=== PATIENT | female | born 1940 | race Caucasian/White ===

== ENCOUNTER 2020-04-30 09:22 | Outpatient (CLI) | payer MEDICARE, SELFPAY ==
[2020-04-30 10:13] LABS: Add Urine Microscopic? YES; Appearance Urine Clear (Clear); Bacteria Urine Trace /hpf; Bilirubin Urine Negative (Negative); Blood Urine Negative (Negative); Color Urine Yellow (Yellow); Glucose Urine UA Negative (Negative); Ketones Urine Negative (Negative); Leukocyte Esterase Ur 2+ LEU/UL (NEGATIVE); Mucus Urine Rare /lpf; Nitrate Urine Negative (Negative); Protein Urine Negative (Negative); RBC Urine 0-2 /hpf (0-2); Specific Grav Ur 1.014 (1.001-1.035); Squamous Epithelial Cell Urine Rare /hpf (Few); Urobilinogen Urine Negative mg/dL (<2.0); WBC Urine 16-20 /hpf (0-3)
[2020-04-30 10:25] LABS: Alanine Aminotransferase 19 U/L (4-35); Albumin Level 4.3 g/dL (3.5-5.1); Alkaline Phosphatase 84 U/L (38-126); Aspartate Amino Transferase 27 U/L (14-36); Bilirubin,Total 0.5 mg/dL (0.2-1.3); Blood Urea Nitrogen 20 mg/dL (7-17); Calcium 9.2 mg/dL (8.4-10.2); Carbon Dioxide 27 mmol/L (22-30); Chloride 96 mmol/L (98-107); Cholesterol 251 mg/dL (0-200); Estimated Glomerular Filt Rate > 60; Glucose 96 mg/dL (65-105); HDL Direct 46 mg/dL; Potassium 4.6 mmol/L (3.4-5.0); Sodium 130 mmol/L (137-145); Triglycerides 263 mg/dL (<150)
[2020-04-30 10:37] LABS: LDL Cholesterol Direct 164 mg/dL
[2020-04-30 11:20] LABS: Vitamin D 25 Hydroxy 93.1 ng/mL
== END 2020-04-30 09:23 | disposition home or self-care (01) ==
LOC: ANHLAB 09:26
PROVIDERS: PCP Physician Assistant; Visit Provider Physician Assistant
DX: E55.9 Vitamin D deficiency, unspecified (principal); F41.1 Generalized anxiety disorder; F51.04 Psychophysiologic insomnia; I10 Essential (primary) hypertension
CPT/HCPCS: 36415; 80053; 80061; 81001; 82306; 84443

== ENCOUNTER 2020-05-13 08:50 | Outpatient (CLI) | payer MEDICARE, SELFPAY ==
[2020-05-13 09:25] LABS: Blood Urea Nitrogen 14 mg/dL (7-17); Calcium 9.2 mg/dL (8.4-10.2); Carbon Dioxide 26 mmol/L (22-30); Chloride 93 mmol/L (98-107); Estimated Glomerular Filt Rate > 60; Glucose 102 mg/dL (65-105); Sodium 127 mmol/L (137-145)
== END 2020-05-13 08:51 | disposition home or self-care (01) ==
LOC: ANHLAB 08:52
PROVIDERS: PCP Physician Assistant; Visit Provider Physician Assistant
DX: I10 Essential (primary) hypertension (principal)
CPT/HCPCS: 36415; 80048

== ENCOUNTER 2020-05-19 08:41 | Outpatient (CLI) | payer MEDICARE, SELFPAY ==
[2020-05-19 09:11] LABS: Blood Urea Nitrogen 19 mg/dL (7-17); Calcium 9.1 mg/dL (8.4-10.2); Carbon Dioxide 25 mmol/L (22-30); Chloride 98 mmol/L (98-107); Estimated Glomerular Filt Rate 53; Glucose 94 mg/dL (65-105); Potassium 5.3 mmol/L (3.4-5.0); Sodium 132 mmol/L (137-145)
== END 2020-05-19 08:42 | disposition home or self-care (01) ==
LOC: ANHLAB 08:43
PROVIDERS: PCP Family Medicine; Visit Provider Physician Assistant
DX: E87.1 Hypo-osmolality and hyponatremia (principal)
CPT/HCPCS: 36415; 80048

== ENCOUNTER 2020-05-26 09:57 | Outpatient (CLI) | payer MEDICARE, SELFPAY ==
[2020-05-26 11:14] LABS: Blood Urea Nitrogen 19 mg/dL (7-17); Carbon Dioxide 25 mmol/L (22-30); Chloride 97 mmol/L (98-107); Estimated Glomerular Filt Rate > 60; Glucose 96 mg/dL (65-105); Potassium 4.8 mmol/L (3.4-5.0); Sodium 132 mmol/L (137-145)
== END 2020-05-26 09:58 | disposition home or self-care (01) ==
PROVIDERS: PCP Family Medicine; Visit Provider Physician Assistant
DX: I10 Essential (primary) hypertension (principal)
CPT/HCPCS: 36415; 80048

== ENCOUNTER 2020-06-17 08:36 | Outpatient (CLI) | payer MEDICARE, SELFPAY ==
[2020-06-17 09:38] LABS: Anion Gap 13.5 mmol/L (7-16); Blood Urea Nitrogen 20 mg/dL (7-17); Calcium 9.1 mg/dL (8.4-10.2); Carbon Dioxide 27 mmol/L (22-30); Chloride 95 mmol/L (98-107); Estimated Glomerular Filt Rate > 60; Glucose 96 mg/dL (65-105); Potassium 4.5 mmol/L (3.4-5.0); Sodium 131 mmol/L (137-145)
== END 2020-06-17 08:37 | disposition home or self-care (01) ==
PROVIDERS: PCP Family Medicine; Visit Provider Physician Assistant
DX: E87.1 Hypo-osmolality and hyponatremia (principal); I10 Essential (primary) hypertension
CPT/HCPCS: 36415; 80048

== ENCOUNTER 2020-07-10 10:00 | Outpatient (CLI) | payer MEDICARE, SELFPAY ==
[2020-07-10 11:00] LABS: Anion Gap 8 mmol/L (8-16); Blood Urea Nitrogen 18 mg/dL (7-17); Calcium 9.5 mg/dL (8.4-10.2); Carbon Dioxide 27 mmol/L (22-30); Chloride 98 mmol/L (98-107); Estimated Glomerular Filt Rate 53; Glucose 104 mg/dL (65-105); Potassium 4.9 mmol/L (3.4-5.0); Sodium 133 mmol/L (137-145)
== END 2020-07-10 10:01 | disposition home or self-care (01) ==
PROVIDERS: PCP Family Medicine; Visit Provider Physician Assistant
DX: E87.1 Hypo-osmolality and hyponatremia (principal)
CPT/HCPCS: 36415; 80048

== ENCOUNTER 2021-03-24 12:00 | Outpatient (CLI) | payer MEDICARE, SELFPAY ==
[2021-03-24 12:33] LABS: Alanine Aminotransferase 21 U/L (4-35); Albumin Level 4.7 g/dL (3.5-5.1); Alkaline Phosphatase 97 U/L (38-126); Anion Gap 9 mmol/L (8-16); Aspartate Amino Transferase 30 U/L (14-36); Bilirubin,Total 0.3 mg/dL (0.2-1.3); Blood Urea Nitrogen 15 mg/dL (7-17); Calcium 9.9 mg/dL (8.4-10.2); Carbon Dioxide 26 mmol/L (22-30); Chloride 99 mmol/L (98-107); Estimated Glomerular Filt Rate 60; Glucose 105 mg/dL (65-105); Hematocrit 44.2 % (37.0-47.0); Mean Corpuscular HGB Conc 33.9 g/dl (32-36); Mean Corpuscular Hemoglobin 30.4 pg (26-34); Mean Corpuscular Volume 89.7 fl (80-100); Mean Platelet Volume 9.6 fl (7.4-10.4); Platelet Count Result 316 k/mm3 (150-375); Potassium 4.8 mmol/L (3.4-5.0); Red Blood Count 4.93 M/mm3 (4.2-5.4); Sodium 134 mmol/L (137-145); White Blood Count 5.9 K/mm3 (4.5-10.0)
[2021-03-24 12:36] LABS: Add Urine Microscopic? NO; Appearance Urine Clear (Clear); Bilirubin Urine Negative (Negative); Blood Urine Negative (Negative); Color Urine Yellow (Yellow); Glucose Urine UA Negative (Negative); Ketones Urine Negative (Negative); Leukocyte Esterase Ur Negative LEU/UL (NEGATIVE); Nitrate Urine Negative (Negative); Protein Urine Negative (Negative); Specific Grav Ur 1.016 (1.001-1.035); Urobilinogen Urine Negative mg/dL (<2.0)
== END 2021-03-24 12:01 | disposition home or self-care (01) ==
PROVIDERS: PCP Family Medicine; Visit Provider Family Medicine
DX: R53.83 Other fatigue (principal); E87.1 Hypo-osmolality and hyponatremia; I10 Essential (primary) hypertension
CPT/HCPCS: 36415; 80053; 81003; 84443; 85027

== ENCOUNTER 2021-09-07 16:01 | Outpatient (CLI) | payer MEDICARE, SELFPAY ==
[2021-09-07 16:34] LABS: Alanine Aminotransferase 20 U/L (4-35); Albumin Level 5.3 g/dL (3.5-5.1); Alkaline Phosphatase 101 U/L (38-126); Anion Gap 12 mmol/L (8-16); Aspartate Amino Transferase 25 U/L (14-36); Bilirubin,Total 0.4 mg/dL (0.2-1.3); Blood Urea Nitrogen 21 mg/dL (7-17); Calcium 9.5 mg/dL (8.4-10.2); Carbon Dioxide 22 mmol/L (22-30); Chloride 101 mmol/L (98-107); Estimated Glomerular Filt Rate 48; Glucose 101 mg/dL (65-110); Potassium 4.8 mmol/L (3.4-5.0); Sodium 135 mmol/L (137-145)
== END 2021-09-07 16:02 | disposition home or self-care (01) ==
PROVIDERS: PCP Family Medicine; Visit Provider Family Medicine
DX: I10 Essential (primary) hypertension (principal)
CPT/HCPCS: 36415; 80053

== ENCOUNTER 2022-04-06 11:14 | Outpatient (CLI) | payer MEDICARE, SELFPAY ==
[2022-04-06 11:36] LABS: Hematocrit 40.2 % (37.0-47.0); Hemoglobin 13.5 g/dL (12.0-15.0); Mean Corpuscular HGB Conc 33.6 g/dl (32-36); Mean Corpuscular Hemoglobin 30.9 pg (26-34); Mean Platelet Volume 9.7 fl (7.4-10.4); Platelet Count Result 298 k/mm3 (150-375); Red Blood Count 4.37 M/mm3 (4.2-5.4); Red Cell Distribution Width 12.7 % (11.5-14.5); White Blood Count 6.6 K/mm3 (4.5-10.0)
[2022-04-06 11:36] LABS: Appearance Urine Clear (Clear); Bilirubin Urine Negative (Negative); Blood Urine Negative (Negative); Color Urine Yellow (Yellow); Glucose Urine UA Negative (Negative); Ketones Urine Negative (Negative); Leukocyte Esterase Ur Trace LEU/UL (NEGATIVE); Nitrate Urine Negative (Negative); Protein Urine Negative (Negative); Urobilinogen Urine 0.2 mg/dL (<2.0)
[2022-04-06 11:50] LABS: Alanine Aminotransferase 18 U/L (6-35); Albumin Level 4.6 g/dL (3.5-5.1); Alkaline Phosphatase 78 U/L (38-126); Anion Gap 8 mmol/L (8-16); Aspartate Amino Transferase 24 U/L (14-36); Bilirubin,Total 0.4 mg/dL (0.2-1.3); Blood Urea Nitrogen 15 mg/dL (7-17); Calcium 9.2 mg/dL (8.4-10.2); Carbon Dioxide 26 mmol/L (22-30); Chloride 99 mmol/L (98-107); Cholesterol 296 mg/dL (0-200); Estimated Glomerular Filt Rate 60; Glucose 99 mg/dL (65-110); HDL Direct 61 mg/dL; Potassium 4.6 mmol/L (3.4-5.0); Sodium 133 mmol/L (137-145); Triglycerides 250 mg/dL (<150)
[2022-04-06 11:52] LABS: RBC Urine 0-2 /hpf (0-2); Squamous Epithelial Cell Urine Rare /hpf (Few)
[2022-04-06 11:57] LABS: Add Urine Microscopic? YES
[2022-04-06 12:00] LABS: LDL Cholesterol Direct 172 mg/dL
== END 2022-04-06 11:15 | disposition home or self-care (01) ==
PROVIDERS: PCP Family Medicine; Visit Provider Family Medicine
DX: R53.83 Other fatigue (principal); E78.5 Hyperlipidemia, unspecified; E87.1 Hypo-osmolality and hyponatremia; I10 Essential (primary) hypertension
CPT/HCPCS: 36415; 80053; 80061; 81001; 84443; 85027

== ENCOUNTER 2022-10-18 10:53 | Outpatient (CLI) | payer MEDICARE, SELFPAY ==
[2022-10-18 12:13] LABS: Alanine Aminotransferase 19 U/L (6-35); Albumin Level 4.5 g/dL (3.5-5.1); Alkaline Phosphatase 90 U/L (38-126); Anion Gap 10 mmol/L (8-16); Aspartate Amino Transferase 24 U/L (14-36); Bilirubin,Total 0.5 mg/dL (0.2-1.3); Blood Urea Nitrogen 16 mg/dL (7-17); Calcium 8.9 mg/dL (8.4-10.2); Carbon Dioxide 23 mmol/L (22-30); Chloride 101 mmol/L (98-107); Estimated Glomerular Filt Rate 48; Glucose 83 mg/dL (65-110); Potassium 4.6 mmol/L (3.4-5.0); Sodium 134 mmol/L (137-145)
== END 2022-10-18 10:54 | disposition home or self-care (01) ==
PROVIDERS: PCP Family Medicine; Visit Provider Family Medicine
DX: I10 Essential (primary) hypertension (principal)
CPT/HCPCS: 36415; 80053

== ENCOUNTER 2022-11-17 11:07 | Outpatient (CLI) | payer MEDICARE, SELFPAY ==
--- NOTE | ~2022-11-17 | XR_ITS ---
EXAMINATION: XR chest 2V DATE: 11/17/2022 11:31 INDICATION: Cough, unspecified TECHNIQUE: PA and lateral views of the chest are obtained. COMPARISON: None available FINDINGS: There is a nodule projecting in left lower lobe. No pleural effusion or pneumothorax. The c ardiomediastinal silhouette is normal. There is moderate thoracic spondylosis. IMPRESSION: 1. Possible nodule of the left lower lobe. Further evaluation with CT of the chest is recommended. Reviewed, dictated and finalized at location B. L TRUCK DRIVER IMPRESSION: 1. Possible nodule of the left lower lobe. Further evaluation with CT of the ch est is recommended.
== END 2022-11-17 11:08 | disposition home or self-care (01) ==
PROVIDERS: PCP Family Medicine; Visit Provider Physician Assistant
DX: R05.9 Cough, unspecified (principal); R91.8 Other nonspecific abnormal finding of lung field
CPT/HCPCS: 71046

== ENCOUNTER 2022-11-24 13:51 | Outpatient (CLI) | payer MEDICARE, SELFPAY ==
--- NOTE | ~2022-11-24 | CT_ITS ---
EXAMINATION: CT diagnostic chest wo con DATE: 11/24/2022 14:18 INDICATION: Possible left lower lobe pulmonary nodule reported on 11/17/2022 chest radiographic TECHNIQUE: Computed tomography (CT) of the chest was performed without intravenous contrast. Automate d exposure control and iterative reconstruction technique were employed. Exam dose: 131.32 mGy-cm to hossein exam DLP. COMPARISON: 11/17/2022 2 view chest FINDINGS: No pulmonary infiltrate or consolidation or pulmonary mass lesion is detected. Normal heart size. Coronary, aortic and great vessel calcifications. No thoracic aortic aneurysm. No hilar or mediastinal mass lesion or lymphadenopathy. Normal morphology of the adrenal glands. No pericardial or pleural effusion. Costal cartilage calcifications likely account for the density overlying the left lower lung field on the 11/17/2022 PA chest view. Degenerative changes of the cervical and thoracic spine. No suspicious osteolytic or osteoblastic les ions. IMPRESSION: Costal cartilage calcifications account for the calcified density overlying the left low er lung field on 11/17/2022 PA chest; no lung mass Reviewed, dictated and finalized at Location A. Reviewed, dictated and finalized at location B. D ADVOCATE IMPRESSION: Costal cartilage calcifications account for the calcified density overlying the left lower lung field on 11/17/2022 PA chest; no lung mass
== END 2022-11-24 13:52 | disposition home or self-care (01) ==
PROVIDERS: PCP Family Medicine; Visit Provider Physician Assistant
DX: R91.1 Solitary pulmonary nodule (principal); I25.10 Atherosclerotic heart disease of native coronary artery without angina pectoris
CPT/HCPCS: 71250

== ENCOUNTER 2023-06-16 07:59 | Outpatient (CLI) | payer MEDICARE, SELFPAY ==
[2023-06-16 08:31] LABS: Hematocrit 39.8 % (37.0-47.0); Hemoglobin 13.3 g/dL (12.0-15.0); Mean Corpuscular HGB Conc 33.4 g/dl (32-36); Mean Corpuscular Hemoglobin 30.4 pg (26-34); Mean Corpuscular Volume 91.1 fl (80-100); Mean Platelet Volume 9.5 fl (7.4-10.4); Platelet Count Result 299 k/mm3 (150-375); Red Blood Count 4.37 M/mm3 (4.2-5.4); Red Cell Distribution Width 13.2 % (11.5-14.5); White Blood Count 6.2 K/mm3 (4.5-10.0)
[2023-06-16 08:36] LABS: Appearance Urine Clear (Clear); Bacteria Urine None Seen /hpf; Bilirubin Urine Negative (Negative); Blood Urine Negative (Negative); Color Urine Yellow (Yellow); Glucose Urine UA Negative (Negative); Ketones Urine Negative (Negative); Leukocyte Esterase Ur 2+ LEU/UL (NEGATIVE); Nitrate Urine Negative (Negative); Non Pathogenic Casts 0-2; Protein Urine Negative (Negative); RBC Urine 0-2 /hpf (0-2); Specific Grav Ur 1.009 (1.001-1.035); Squamous Epithelial Cell Urine None seen /hpf (Few); Urobilinogen Urine 0.2 mg/dL (<2.0); pH Urine 7.5 (5.0-9.0)
[2023-06-16 08:44] LABS: Alanine Aminotransferase 24 U/L (6-35); Albumin Level 4.6 g/dL (3.5-5.1); Alkaline Phosphatase 94 U/L (38-126); Anion Gap 11 mmol/L (8-16); Aspartate Amino Transferase 28 U/L (14-36); Bilirubin,Total 0.5 mg/dL (0.2-1.3); Blood Urea Nitrogen 14 mg/dL (7-17); Calcium 9.3 mg/dL (8.4-10.2); Carbon Dioxide 23 mmol/L (22-30); Chloride 98 mmol/L (98-107); Cholesterol 254 mg/dL (0-200); Estimated Glomerular Filt Rate 53; Glucose 91 mg/dL (65-110); HDL Direct 63 mg/dL; Potassium 4.6 mmol/L (3.4-5.0); Sodium 132 mmol/L (137-145); Triglycerides 244 mg/dL (<150)
[2023-06-16 08:46] LABS: Add Urine Microscopic? YES
[2023-06-16 08:55] LABS: LDL Cholesterol Direct 136 mg/dL
[2023-06-16 09:26] LABS: Vitamin D 25 Hydroxy 54.8 ng/mL
== END 2023-06-16 08:00 | disposition home or self-care (01) ==
PROVIDERS: PCP Family Medicine; Visit Provider Family Medicine
DX: E55.9 Vitamin D deficiency, unspecified (principal); E87.1 Hypo-osmolality and hyponatremia; E78.5 Hyperlipidemia, unspecified; Z68.29 Body mass index [BMI] 29.0-29.9, adult; I10 Essential (primary) hypertension
CPT/HCPCS: 36415; 80053; 80061; 81001; 82306; 84443; 85027

== ENCOUNTER 2023-09-22 15:14 | Outpatient (CLI) | payer MEDICARE, SELFPAY ==
--- NOTE | ~2023-09-22 | XR_ITS ---
XR chest 2V 09/22/2023 15:33 Indication: Cough Procedure: 2 view chest Comparison: 11/17/2022 Findings: Heart size normal. No focal air space disease, pulmonary edema, pleural effusion or suspect ed pneumothorax. Impression: 1: No acute cardiopulmonary disease. Reviewed, dictated and finalized at location A. Impression: 1: No acute cardiopulmonary disease.
== END 2023-09-22 15:15 | disposition home or self-care (01) ==
PROVIDERS: PCP Family Medicine; Visit Provider Physician Assistant Medical
DX: R05.9 Cough, unspecified (principal); R53.83 Other fatigue
CPT/HCPCS: 71046

== ENCOUNTER 2024-04-25 12:56 | Outpatient (CLI) | payer MEDICARE, SELFPAY ==
[2024-04-25 14:07] LABS: Alanine Aminotransferase 17 U/L (6-35); Albumin Level 4.6 g/dL (3.5-5.1); Alkaline Phosphatase 93 U/L (38-126); Anion Gap 9 mmol/L (4-12); Aspartate Amino Transferase 26 U/L (14-36); Bilirubin,Total 0.5 mg/dL (0.2-1.3); Blood Urea Nitrogen 24 mg/dL (7-17); Calcium 9.3 mg/dL (8.4-10.2); Carbon Dioxide 22 mmol/L (22-30); Chloride 101 mmol/L (98-107); Estimated Glomerular Filt Rate 53; Glucose 89 mg/dL (65-110); Potassium 4.8 mmol/L (3.4-5.0); Sodium 132 mmol/L (137-145)
== END 2024-04-25 12:57 | disposition home or self-care (01) ==
PROVIDERS: PCP Family Medicine; Visit Provider Family Medicine
DX: I10 Essential (primary) hypertension (principal)
CPT/HCPCS: 36415; 80053

== ENCOUNTER 2024-11-02 11:48 | Outpatient (CLI) | payer MEDICARE, SELFPAY ==
[2024-11-02 12:28] LABS: Hematocrit 41.5 % (37.0-47.0); Hemoglobin 14.2 g/dL (12.0-15.0); Mean Corpuscular HGB Conc 34.2 g/dl (32-36); Mean Corpuscular Hemoglobin 30.5 pg (26-34); Mean Corpuscular Volume 89.1 fl (80-100); Mean Platelet Volume 9.6 fl (7.4-10.4); Platelet Count Result 302 k/mm3 (150-375); Red Blood Count 4.66 M/mm3 (4.2-5.4); Red Cell Distribution Width 13.1 % (11.5-14.5); White Blood Count 5.2 K/mm3 (4.5-10.0)
[2024-11-02 12:37] LABS: Add Urine Microscopic? YES; Appearance Urine Clear (Clear); Bacteria Urine None Seen /hpf; Bilirubin Urine Negative (Negative); Blood Urine Negative (Negative); Color Urine Yellow (Yellow); Glucose Urine UA Negative (Negative); Ketones Urine Negative (Negative); Leukocyte Esterase Ur Trace LEU/UL (Negative); Nitrate Urine Negative (Negative); Non Pathogenic Casts 0-2; Protein Urine Negative (Negative); RBC Urine 0-2 /hpf (0-2); Specific Grav Ur 1.012 (1.001-1.035); Squamous Epithelial Cell Urine None Seen /hpf (Few); Urobilinogen Urine 0.2 mg/dL (<2.0); WBC Urine 0-5 /hpf (0-3)
[2024-11-02 12:38] LABS: Alanine Aminotransferase 18 U/L (6-35); Alkaline Phosphatase 106 U/L (38-126); Anion Gap 6 mmol/L (4-12); Aspartate Amino Transferase 30 U/L (14-36); Bilirubin,Total 0.4 mg/dL (0.2-1.3); Blood Urea Nitrogen 13 mg/dL (7-17); Calcium 9.7 mg/dL (8.4-10.2); Carbon Dioxide 26 mmol/L (22-30); Chloride 98 mmol/L (98-107); Cholesterol 287 mg/dL (0-200); Estimated Glomerular Filt Rate > 60; Glucose 100 mg/dL (65-110); HDL Direct 80 mg/dL; Potassium 4.7 mmol/L (3.4-5.0); Sodium 130 mmol/L (137-145); Triglycerides 143 mg/dL (<150)
[2024-11-02 12:49] LABS: LDL Cholesterol Direct 175 mg/dL
== END 2024-11-02 11:49 | disposition home or self-care (01) ==
PROVIDERS: PCP Family Medicine; Visit Provider Family Medicine
DX: R53.83 Other fatigue (principal); I10 Essential (primary) hypertension; Z00.00 Encounter for general adult medical examination without abnormal findings
CPT/HCPCS: 36415; 80053; 80061; 81001; 84443; 85027

== ENCOUNTER 2025-05-16 07:25 | Outpatient (CLI) | payer MEDICARE, SELFPAY ==
[2025-05-16 08:14] LABS: Hematocrit 42.1 % (37.0-47.0); Hemoglobin 14.1 g/dL (12.0-15.0); Mean Corpuscular HGB Conc 33.5 g/dl (32-36); Mean Corpuscular Volume 89.6 fl (80-100); Mean Platelet Volume 9.6 fl (7.4-10.4); Platelet Count Result 322 k/mm3 (150-375); Red Cell Distribution Width 12.7 % (11.5-14.5); White Blood Count 6.3 K/mm3 (4.5-10.0)
[2025-05-16 08:35] LABS: Alanine Aminotransferase 20 U/L (6-35); Albumin Level 4.5 g/dL (3.5-5.1); Alkaline Phosphatase 78 U/L (38-126); Anion Gap 11 mmol/L (4-12); Aspartate Amino Transferase 36 U/L (14-36); Bilirubin,Total 0.5 mg/dL (0.2-1.3); Blood Urea Nitrogen 11 mg/dL (7-17); Calcium 9.7 mg/dL (8.4-10.2); Carbon Dioxide 24 mmol/L (22-30); Chloride 95 mmol/L (98-107); Cholesterol 279 mg/dL (0-200); Estimated Glomerular Filt Rate 55; Glucose 93 mg/dL (65-110); HDL Direct 62 mg/dL; Potassium 4.7 mmol/L (3.4-5.0); Sodium 130 mmol/L (137-145); Total Protein 7.2 g/dL (6.3-8.2); Triglycerides 188 mg/dL (<150)
[2025-05-16 08:47] LABS: LDL Cholesterol Direct 175 mg/dL
== END 2025-05-16 07:26 | disposition home or self-care (01) ==
PROVIDERS: PCP Family Medicine; Visit Provider Family Medicine
DX: E87.1 Hypo-osmolality and hyponatremia (principal); I10 Essential (primary) hypertension; Z00.00 Encounter for general adult medical examination without abnormal findings; E78.5 Hyperlipidemia, unspecified; R53.83 Other fatigue
CPT/HCPCS: 36415; 80053; 80061; 84443; 85027

== ENCOUNTER 2025-05-25 18:25 | Emergency (ER) | payer MEDICARE, SELFPAY ==
--- NOTE | ~2025-05-25 | XR_ITS ---
EXAMINATION: XR chest 2V Exam Date/Time: 05/25/2025 18:38 CDT HISTORY: cough fever Comparison: 09/22/2023. RESULT: Lines, tubes, and devices: None. Lungs and pleura: Clear. Cardiomediastinal silhouette: Stable. Other: No acute osseous or upper abdominal finding. IMPRESSION: No acute cardiopulmonary process. Reviewed, dictated and finalized at location K.
--- NOTE | 2025-05-25 18:34 | ED_ITS ---
HPI - URI/Sore Throat General Chief Complaint: Upper Respiratory Infection Stated Complaint: Respiratory Problems/Lung Infection Time Seen by Provider: 05/25/25 18:34 Source: patient Mode of arrival: ambulatory Limitations: no limitations History of Present Illness HPI Narrative: 84 y/o female with hx HTN presented for c/o cough, onset3 days. Pt was seen by pcp on 05/23, advised her symptoms were likely a viral illness. PCP sent Rx z-pack to be started if sx worsen over the holiday weekend, however Pt did start the zpack that day. 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 Denies sob, chest pain, palpitations, n/v/d. Took cough syrup and Nyquil. Pt tested negative for covid at home on 05/22. Related Data Allergies Allergy/AdvReac Type Severity Reaction Status Date / Time prednisolone AdvReac Mild Itching Verified 05/25/25 18:35 Review of Systems Review of Systems: per HPI All systems reviewed & are unremarkable except as noted in HPI and below PMFSH Past Medical History Medical History HLD (hyperlipidemia) Obesity Vitamin D deficiency RAMÓN (generalized anxiety disorder) Chronic insomnia HTN (hypertension) Surgical History Surgical History History of total left hip arthroplasty Family History Family History Mother Cerebrovascular accident Father Hypertension Social History Social History Smoking status: Never smoker Second hand tobacco smoke exposure: No Alcohol intake: never Substance use: never Substance use type: does not use Living arrangements: with family Occupation/Education: retired Gender identity (if verbalized by the patient): Female Sexual Orientation (if Verbalized by the Patient): Straight or Heterosexual Spiritual care concerns: No Comments At time of signature, I have reviewed and agree with nursing past medical, surgical, social and family history unless otherwise noted. Please see nursing chart for further information. There is no relevant family history pertinent to the presenting complaint Exam Narrative: GENERAL: Well-appearing, in no acute distress. EYES: EOMI. No redness or drainage. Conjunctivae normal. ENT: Mucous membranes pink and moist. No rhinorrhea. Throat normal. Uvula midline. NECK: Normal AROM. Supple. CHEST: No respiratory distress. lungs clear to all muñoz. Speaks full sentences. 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 HEART: Regular rate and rhythm. No murmur appreciated. EXTREMITIES: Normal range of motion. No edema. SKIN: Warm, dry, no rash. Capillary refill normal. Normal skin turgor. NEURO: Alert and oriented x3. Gait steady. PSYCH: Normal affect. Course Course Emergency Course: Patient is aware of diagnosis, understands and agrees to treatment plan. Anticipatory guidance given. Patient agrees to follow-up as directed and is aware of reasons to seek care at the emergency department. Portions of this record may have been created with voice recognition software Level of Care: Express Care Visit Vital Signs Vital signs: Vital Signs Oxygen Delivery Room Air 05/25/25 18:30 Temperature 97.8 F 05/25/25 18:35 Pulse Rate 76 05/25/25 18:35 Respiratory Rate 16 05/25/25 18:35 Blood Pressure 171/74 H 05/25/25 18:35 Pulse Oximetry 98 05/25/25 18:35 Oxygen Delivery Room Air 05/25/25 18:30 MDM - URI/Sore Throat MDM Narrative Medical decision making narrative: Discussed physical exam findings and chest x-ray. Reviewed prescriptions. Patient will plan to follow-up with PCP in 2 days. Advised supportive measures and signs/symptoms to go to the ER. Pt is appropriate for outpt treatment and f/u. Differential Diagnosis Differential diagnosis: Likely upper respiratory infection, sinusitis, viral infection, bronchitis, pharyngitis and other (Angioedema, perforation, asthma, pneumonia, PE, tension pneumothorax, cardiac tamponade AL, pericarditis, pleural effusion, CHF, bronchitis, cardiac arrhythmia) Imaging Data Radiologist's impression: Patient: Brandi Hayes : 1940 MR#: [id number] Age: 84 Acct:[id number] Loc: [facility] ADM Date: 05/25/25Attending Dr: EXAMINATION: XR chest 2V Exam Date/Time: 05/25/2025 18:38 CDT HISTORY: cough fever Comparison: 09/22/2023. RESULT: Lines, tubes, and devices: None. Lungs and pleura: Clear. Cardiomediastinal silhouette: Stable. Other: No acute osseous or upper abdominal finding. IMPRESSION: No acute cardiopulmonary process. Discharge Plan Discharge Clinical Impression: Bronchitis Patient Disposition: Home Condition: Stable Instructions: Antibiotic Form, Acute Bronchitis (ED) Additional Instructions: Acute bronchitis can be contagious because it is usually caused by infection with a virus or bacteria. It is usually for a few days but you can be contagious for up to one week. Avoid crowds until you do not have a fever and symptoms are improved Take medication as directed Recommendations: Flonase spray and Zyrtec (or Claritin/Nelia) if you have nasal congestion over the counter Cough syrup may cause drowsiness; avoid driving or take it at night time. Coricidin HBP if you have hypertension Tylenol every 8 hours as needed for pain/fever Rest, fluids, and increase humidity of the air at home. albuterol inhaler is as needed if you feel short of breath or wheezing Follow up with your primary care provider as needed in 1 week Go to the ER for worsening symptoms or concerns Patient Language: Israeli Prescriptions: New prednisone 20 mg tablet 40 mg PO DAILY 5 Days Qty: 10 0RF albuterol sulfate 90 mcg/actuation HFA aerosol inhaler 2 inh inhalation QID PRN (Reason: shortness of breath or wheezing) Qty: 8.5 0RF No Action rosuvastatin 5 mg tablet 5 mg PO DAILY Qty: 30 5RF lorazepam [Ativan] 1 mg tablet 1 mg PO BID PRN (Reason: RAMÓN) Qty: 60 0RF albuterol sulfate 90 mcg/actuation HFA aerosol inhaler 1 puff inhalation Q4-6H PRN (Reason: shortness of breath or wheezing) Qty: 8.5 0RF azithromycin 250 mg tablet See Rx Instructions PO .COMPLEX Qty: 6 0RF Rx Instructions: For 250 mg dose pack: take 500 mg today (day 1), then 250 mg for 4 days (days 2-5) PO metoprolol succinate 50 mg tablet extended release 24 hr 50 mg PO DAILY Qty: 90 2RF lisinopril 30 mg tablet 30 mg PO DAILY Qty: 90 3RF amlodipine 10 mg tablet See Rx Instructions .ROUTE .COMPLEX Qty: 90 2RF Dose Instruction: TAKE 1 TABLET BY MOUTH DAILY Rx Instructions: TAKE 1 TABLET BY MOUTH DAILY ergocalciferol (vitamin D2) 1,250 mcg (50,000 unit) capsule See Rx Instructions .ROUTE .COMPLEX Qty: 12 0RF Dose Instruction: Take 1 capsule by mouth once a week Rx Instructions: Take 1 capsule by mouth once a week Follow-up/Referrals: Dylon Houser MD [Primary Care Provider] - Time of Disposition: 19:05
[2025-05-25 18:35] VITALS: BP 171/74; PULSE 76; RESP 16; TEMP 36.6; O2SAT 98
== END 2025-05-25 19:06 | disposition home or self-care (01) ==
PROVIDERS: Emergency Provider Nurse Practitioner Family; PCP Family Medicine
DX: J40 Bronchitis, not specified as acute or chronic (principal); I10 Essential (primary) hypertension; E78.5 Hyperlipidemia, unspecified; E66.9 Obesity, unspecified; Z68.31 Body mass index [BMI] 31.0-31.9, adult; E55.9 Vitamin D deficiency, unspecified; F41.1 Generalized anxiety disorder; Z96.642 Presence of left artificial hip joint
CPT/HCPCS: 71046; 99213; G0463

== ENCOUNTER 2025-05-27 10:39 | Outpatient (CLI) | payer MEDICARE, SELFPAY ==
--- OUTSIDE RECORDS SUMMARY | 2025-05-27 10:52 | XMS_ITS | Clinical Summary ---
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 30 tablet 09/10/2018 Active oxyCODONE-aceta minophen (PERCOCET) 5-325 MG tablet Take 1-2 tablets by mouth every 6 (six) hours as needed for Pain. 20 tablet 09/10/2018 Active Social History Tobacco Use Types Packs/Day Years Used Date Smoking Tobacco: Former Smokeless Tobacco: Never Comments No Sex and Gender Information Value Date Recorded Sex Assigned at Not on file Legal Sex Female 5:32 PM CDT Gender Identity Not on file Sexual Orientation Not on file Last Filed Vital Signs Vital Sign Reading Time Taken Comments Blood Pressure 154/79 09/10/2018 10:45 PM CDT Pulse 66 09/10/2018 10:15 PM CDT Temperature 37.1 C (98.8 F) 09/10/2018 5:40 PM CDT Respiratory Rate 16 09/10/2018 10:15 PM CDT Oxygen Saturation 96% 09/10/2018 10:45 PM CDT Inhaled Oxygen Concentration - - Weight 78 kg (172 lb) 09/10/2018 5:40 PM CDT Height 165.1 cm (5' 5) 09/10/2018 5:40 PM CDT Body Mass Index 28.62 09/10/2018 5:40 PM CDT Plan of Treatment Health Maintenance Due Date Last Done Comments DTaP, Tdap and Td Vaccines ( 1 - Tdap) 1959 Pneumococcal Vaccine: 50+ Ye ars (1 of 1 - PCV) 1990 Zoster Vaccines (1 of 2) 1990 Dexa Scan (General) 2005 RSV Immunization or 60+ Years (1 - 1-dose 75+ series) 2015 COVID-19 Vaccine (1 - 2023-2 5 season) 2024 Meningococcal B Vaccine Aged Out No l onger eligible based on patient's age to complete this topic Meningococcal Vaccine Aged Out No atiya richa eligible based on patient's age to complete this topic RSV Immunizations Under 20 Months Aged Out No longer eligible based on patient's age to complete this topic Insurance AETNA [facility] Care Teams Middle School Music Teacher Relationship Specialty Start Date End Date Campos Ham MD [address] [place] [address] PCP - General FAMILY PRACTICE 09/10/18
--- OUTSIDE RECORDS SUMMARY | 2025-05-27 10:52 | XMS_ITS | Clinical Summary ---
Author Organization [facility] Address [address] [place] [address] Care Team Providers Care Die Equipment Operator Name Role Phone Dylon Houser MD Primary Care Provider Allergies No known active allergies Medications cholecalciferol (VITAMIN D-3) 50,000 unit tabletIndicatio ns:Vitamin D Deficiency,take n on Tuesday Take 1 tablet (50,000 Units total) by mouth once a week Active LORazepam (ATIVAN) 1 mg tabletIndicatio ns:anxiety Take 1 tablet (1 mg total) by mouth nightly as needed for anxiety or sleep 5 8 Active aspirin 325 mg EC tabletIndicatio ns:Deep Vein Thrombosis Prevention Take 1 tablet (325 mg total) by mouth 2 (two) times a day. 84 tablet 9 Active amoxicillin (amoxicillin) 500 mg tablet/capsuleI ndications:Prop hylaxis, Medical Take 1 tablet/capsule (500 mg total) by mouth as directed TAKE 4 PILL 1 HOUR BEFORE DENTAL APPOINTMENT. 12 tablet/capsu le 9 Active Additional Information Patient not taking.Reported on 09/11/2021 ergocalciferol (VITAMIN D) 50,000 unit capsule TAKE 1 CAPSULE BY MOUTH WEEKLY 1 Active amLODIPine (NORVASC) 10 mg tablet Take 1 tablet (10 mg total) by mouth daily 1 Active lisinopriL (PRINIVIL,ZESTR IL) 10 mg tablet Take 1 tablet (10 mg total) by mouth daily 1 Active metoprolol XL (TOPROL-XL) 50 mg extended release tablet Take 1 tablet (50 mg total) by mouth daily 1 Active Active Problems Problem Noted Date Diagnosed Date Anxiety 11/28/2018 HTN (hypertension) 11/28/2018 Primary osteoarthritis of left hip 10/21/2018 Overview (10/21/2018): Added automatically from request for surgery [id number] Keratosis, senilis 01/27/2015 Rosacea 01/27/2015 Pain of foot 07/23/2014 Immunizations Immunization Administration Dates Next Due DTaP, Unspecified 10/17/2012 Hep A, Adult 10/17/2012 Moderna SARS-CoV-2 Monovalent Vaccination (12+ Y RS) 01/20/2021,12/18/2020 Typhoid Inactivated 10/17/2012 Surgical History Surgery Date Site/Laterality Comments FOOT SURGERY 11/21/2003 - 11/20/2004 Left bone spur TOTAL HIP ARTHROPLASTY 12/01/2018 Left Medical History Medical History Date Comments Hypertension Anxiety Osteoarthritis left hip DDD (degenerative disc disease), cervical L4-L5 Grade I Chronic pain Left Family History Medical History Relation Name Comments Hypertension Father Family history of hypertension - (Added by TW Conv) Aortic stenosis Mother Relation Name Status Comments Father Mother Social History Tobacco Use Types Packs/Day Years Used Date Smoking Tobacco: Former Cigarettes Q uit: 1966 Smokeless Tobacco: Never Alcohol Use Standard Drinks/Week Comments Yes 0 (1 standard drink = 0.6 oz pur e alcohol) rare Comments No Sex and Gender Information Value Date Recorded Sex Assigned at Not on file 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 Gender Identity Female 04/22/2021 5:19 PM CDT Sexual Orientation Straight 03/23/2021 5: 54 PM CDT Occupation Industry Job Start Date Job End Date retired Not on file Not on file Not on file Obstetrics History Comments LMP: 1987 Last Filed Vital Signs Vital Sign Reading Time Taken Comments Blood Pressure 168/90 09/20/2023 11:29 AM CDT Pulse 92 09/20/2023 11:29 AM CDT Temperature 37.6 C (99.6 F) 09/20/2023 11:29 AM CDT Respiratory Rate 16 09/20/2023 11:29 AM CDT Oxygen Saturation 97% 09/20/2023 11:29 AM CDT Inhaled Oxygen Concentration - - Weight 79.4 kg (175 lb) 09/20/2023 11:29 AM CDT Height 162.6 cm (5' 4) 09/20/2023 11:29 AM CDT Body Mass Index 30.04 09/20/2023 11:29 AM CDT Plan of Treatment Health Maintenance Due Date Last Done Comments Depression Screening 1940 Fall Risk Assessment 1940 Hepatitis B Screening 1958 Pneumococcal vaccine 65+ (1 of 1 - PCV) 1990 Zoster Vaccine (1 of 2) 1990 Well Visit 65+ 2005 Osteoporosis Screening-Bone Density Scan 08/02/2016 08/02/2014 DTaP/Tdap/Td Vaccine (2 - Tdap) 10/17/2022 2 Covid-19 Vaccine (3 - season) 07/22/202412/2020, 12/18/2020 Influenza Vaccine (#1) 2025 Medical Devices Implanted Type Area Casting Director Device Identifier Shelf Expiration Date Model / Serial / Lot [employer] [id number] Trilogy 6.5mm 40mm Self Tap Hip Acetabular Cortical Screw Bone - S0 - [id number] Implanted:Qty: 1 on 12/01/2018 by Alyson Sarkar MD at [facility] Screw Left: Hip [employer] 09/20/2028 [id number] / 0 / [id number] [employer] [id number] Trilogy 6.5mm 35mm Self Tap Screw Bone - S0 - [id number] Implanted:Qty: 1 on 12/01/2018 by Alyson Sarkar MD at [facility] Screw Left: Hip [employer] [id number] 10/20/2028 [id number] / 0 / [id number] [employer] [id number] Trilogy 6.5mm 30mm Self Tap Acetabular Cortical Screw Bone - S0 - [id number] Implanted:Qty: 1 on 12/01/2018 by Alyson Sarkar MD at [facility] Screw Left: Hip [employer] [id number] 09/20/2028 [id number] / 0 / [id number] [employer] [id number] Trilogy 6.5mm 25mm Self Tap Screw Bone - S0 - [id number] Implanted:Qty: 1 on 12/01/2018 at [facility] Screw Left: Hip [employer] [id number] 09/20/2028 [id number] / 0 / [id number] [employer] [id number] 58mm Modular Multihole Revision Hip Cup Acetabular Trabecular - S0 - [id number] Implanted:Qty: 1 on 12/01/2018 by Alyson Sarkar MD at [facility] Left: Hip [employer] [id number] 03/20/2028 [id number] / 0 / [id number] [employer] [id number] Trilogy 58mm 36mm 8.9mm Primary Modular Cup Liner Hip Standard - S0 - [id number] Implanted:Qty: 1 on 12/01/2018 by Alyson Sarkar MD at [facility] Left: Hip [employer] [id number] 06/20/2023 [id number] / 0 / [id number] Description:Liner [employer] [id number] Versys 13mm 140mm Primary Collar Alignment Guide Hip 39mm - S0 - [id number] Implanted:Qty: 1 on 12/01/2018 by Alyson Sarkar MD at [facility] Left: Hip [employer] [id number] 07/21/2027 [id number] / 0 / [id number] Description:Stem [employer] [id number] 36mm Hip Acetabular -3.5mm 12/14 Small Head Femoral Biolox Delta - [id number] Implanted:Qty: 1 on 12/01/2018 by Alyson Sarkar MD at [facility] Left: Hip [employer] [id number] 08/20/2028 [id number] / / [id number] Description:Head Procedures Procedure Name Priority Date/Time Associated Diagnosis Comments BONE MINERAL DENSITY 08/02/2014 from Last 3 Months or Most Recently Relevant to Health Maintenance Results * BONE MINERAL DENSITY (08/02/2014) Anatomical Region Laterality Modality Radiographic Daniela ging Narrative 08/02/2014 Ordered by an unspecified provider. Historical Provider MD FULLER DXA PROCEDURES Final Result from Last 3 Months or Most Recently Relevant to Health Maintenance Insurance MEDICARE COMMERCIAL GENERIC [facility] MEDIC[facility] COMMERCIAL GENERIC CIGNA OPEN ACCESS AETNA [facility] PPO MEDICARE COMMERCIAL GENERIC Advance Directives For more information, please contact: [phone] * Full Code (Latest Code Status on File) Date Activated Date Inactivated Comments 12/01/2018 1:32 PM 12/04/2018 11:01 PM Care Teams Die Equipment Operator Relationship Specialty Start Date End Date Dylon Houser MD [address] [address] PCP - General Family Medicine 12/20/19
--- OUTSIDE RECORDS SUMMARY | 2025-05-27 10:52 | XMS_ITS | Referral Summary ---
Author Organization [facility] Address [address] [place] [address] Care Team Providers Care Pourer Off Name Role Phone Dylon Houser MD Primary [...] (10/21/2018): Added automatically from request for surgery [id number] Keratosis, senilis 01/27/2015 Rosacea 01/27/2015 Pain of foot 07/23/2014 Immunizations Immunization Administration Dates Next Due DTaP, Unspecified 10/17/2012 Hep A, Adult 10/17/2012 Moderna SARS-CoV-2 Monovalent Vaccination (12+ Y RS) 01/20/2021,12/18/2020 Typhoid Inactivated 10/17/2012 Social History Tobacco Use Types Packs/Day Years Used Date Smoking Tobacco: Former Cigarettes Q uit: 1966 Smokeless Tobacco: Never Alcohol Use Standard Drinks/Week Comments Yes 0 (1 standard drink = 0.6 oz pur e alcohol) rare Comments No Sex and Gender Information Value Date Recorded Sex Assigned at Not on file 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 Gender Identity Female 04/22/2021 5:19 PM CDT Sexual Orientation Straight 03/23/2021 5: 54 PM CDT Occupation Industry Job Start Date Job End Date retired Not on file Not on file Not on file Last Filed Vital Signs [...] 09/20/2023 11:29 AM CDT Plan of Treatment Not on file Medical Devices Implanted Type Area Family Consumer Science Teacher Device Identifier Shelf Expiration Date Model / Serial / Lot [employer] [id number] Trilogy 6.5mm 40mm Self Tap Hip Acetabular Cortical Screw Bone - S0 - [id number] Implanted:Qty: 1 on 12/01/2018 by Alyson Sarkar MD at [facility] Screw Left: Hip [employer] 09/20/2028 [id number] / 0 / [id number] [employer] [id number] Trilogy 6.5mm 35mm Self Tap Screw Bone - S0 - [id number] Implanted:Qty: 1 on 12/01/2018 by Alyson Sarkar MD at [facility] Screw Left: Hip [employer] [id number] 10/20/2028 [id number] / 0 / [id number] [employer] [id number] Trilogy 6.5mm 30mm Self Tap Acetabular Cortical Screw Bone - S0 - [id number] Implanted:Qty: 1 on 12/01/2018 by Alyson Sarkar MD at [facility] Screw Left: Hip [employer] [id number] 09/20/2028 [id number] / 0 / [id number] [employer] [id number] Trilogy 6.5mm 25mm Self Tap Screw Bone - S0 - [id number] Implanted:Qty: 1 on 12/01/2018 at [facility] Screw Left: Hip [employer] [id number] 09/20/2028 [id number] / 0 / [id number] [employer] [id number] 58mm Modular Multihole Revision Hip Cup Acetabular Trabecular - S0 - [id number] Implanted:Qty: 1 on 12/01/2018 by Alyson Sarkar MD at [facility] Left: Hip [employer] [id number] 03/20/2028 [id number] / 0 / [id number] [employer] [id number] Trilogy 58mm 36mm 8.9mm Primary Modular Cup Liner Hip Standard - S0 - [id number] Implanted:Qty: 1 on 12/01/2018 by Alyson Sarkar MD at [facility] Left: Hip [employer] [id number] 06/20/2023 [id number] / 0 / [id number] Description:Liner [employer] [id number] Versys 13mm 140mm Primary Collar Alignment Guide Hip 39mm - S0 - [id number] Implanted:Qty: 1 on 12/01/2018 by Alyson Sarkar MD at [facility] Left: Hip [employer] [id number] 07/21/2027 [id number] / 0 / [id number] Description:Stem [employer] [id number] 36mm Hip Acetabular -3.5mm 11/03 Small Head Femoral Biolox Delta - [id number] Implanted:Qty: 1 on 12/01/2018 by Alyson Sarkar MD at [facility] Left: Hip [employer] [id number] 08/20/2028 [id number] / / [id number] Description:Head Procedures Procedure Name Priority Date/Time Associated [...] to Health Maintenance Insurance MEDICARE COMMERCIAL GENERIC [facility] COMMERCIAL GENERIC CIGNA OPEN ACCESS [facility] PPO MEDICARE COMMERCIAL GENERIC Advance Directives For more information, please contact: [phone] * Full Code (Latest Code Status on File) Date Activated Date Inactivated Comments 12/01/2018 1:32 PM 12/04/2018 11:01 PM Care Teams Pourer Off Relationship Specialty Start Date End Date Dylon Houser MD [address] [facility] [address] [place] [address] PCP - General Family Medicine 12/20/19
[2025-05-27 11:33] LABS: Add Urine Microscopic? YES; Appearance Urine Clear (Clear); Glucose Urine UA Negative (Negative); Leukocyte Esterase Ur 2+ LEU/UL (Negative); Nitrate Urine Negative (Negative); Non Pathogenic Casts 0-2; Specific Grav Ur 1.020 (1.001-1.035)
== END 2025-05-27 10:40 | disposition home or self-care (01) ==
PROVIDERS: PCP Family Medicine; Visit Provider Physician Assistant Medical
DX: R30.0 Dysuria (principal)
CPT/HCPCS: 81001; 87086

== ENCOUNTER 2025-10-10 11:26 | Emergency (ER) | payer MEDICARE, SELFPAY ==
--- NOTE | ~2025-10-10 | XR_ITS ---
EXAMINATION: XR chest 2V DATE: 10/10/2025 12:28 INDICATION: Coughing TECHNIQUE: Frontal and lateral views of the chest were obtained. COMPARISON: May 25, 2025 FINDINGS: The lungs are clear. Heart size normal. Bones and upper abdomen unremarkable. IMPRESSION: 1. Stable 2 view chest x-ray with no focal infiltrate. Reviewed, dictated and finalized at location A.
[2025-10-10 11:42] VITALS: BP 161/63; PULSE 84; RESP 16; TEMP 36.9; O2SAT 98
--- NOTE | 2025-10-10 12:18 | ED.URI ---
HPI - URI/Sore Throat General Chief Complaint: Upper Respiratory Infection Stated Complaint: Cough Time Seen by Provider: 10/10/25 12:08 Source: patient, family (Daughter) and RN notes reviewed Mode of arrival: ambulatory Limitations: no limitations History of Present Illness HPI Narrative: 84-year-old female patient presents today complaining of a 3 day history of cough, 2 day history of wheezing with fever up to 102 days ago and none since then. She also reports some fatigue and nasal congestion. Reports wheezing is most prominent at night, and daughter states patient coughs through the night every night. Denies sore throat or shortness of breath. She has tried some nsfy-gtl-xthhfby cough medicine with some relief. Denies history of asthma or COPD. Related Data Allergies Allergy/AdvReac Type Severity Reaction Status Date / Time prednisolone AdvReac Mild Itching Verified 07/15/25 13:48 PMFSH Past Medical History Medical History HLD (hyperlipidemia) Obesity Vitamin D deficiency RAMÓN (generalized anxiety disorder) Chronic insomnia HTN (hypertension) Surgical History Surgical History History of total left hip arthroplasty Family History Family History Mother Cerebrovascular accident Father Hypertension Social History Social History Smoking status: Never smoker Second hand tobacco smoke exposure: No Alcohol intake: never Substance use: never Substance use type: does not use Living arrangements: with family Occupation/Education: retired Gender identity (if verbalized by the patient): Female Sexual Orientation (if Verbalized by the Patient): Straight or Heterosexual Spiritual care concerns: No Comments At time of signature, I have reviewed and agree with nursing past medical, surgical, social and family history unless otherwise noted. Please see nursing chart for further information. There is no relevant family history pertinent to the presenting complaint Exam Narrative: GENERAL: Well-appearing, well-nourished, and in no acute distress. HEAD: Normocephalic, atraumatic. EYES: EOMI. No redness or drainage. Conjunctivae normal. ENT: Mucous membranes pink and moist. Nares mildly congested. No rhinorrhea. TMs normal bilaterally. Throat normal. Uvula midline. NECK: Normal AROM. Supple. No lymphadenopathy. CHEST: No respiratory distress. Clear to auscultation. HEART: Regular rate and rhythm. No murmur appreciated. EXTREMITIES: Normal range of motion. No edema. SKIN: Warm, dry, no rash. Capillary refill normal. Normal skin turgor. NEURO: No focal deficits. Alert and oriented x3. Gait steady. PSYCH: Normal affect. No signs of depression or anxiety. Course Course Level of Care: Express Care Visit Vital Signs Vital signs: Vital Signs Temperature 98.5 F 10/10/25 11:42 Pulse Rate 84 10/10/25 11:42 Respiratory Rate 16 10/10/25 11:42 Blood Pressure 161/63 H 10/10/25 11:42 Pulse Oximetry 98 10/10/25 11:42 Temperature 98.5 F 10/10/25 11:42 Pulse Rate 84 10/10/25 11:42 Respiratory Rate 16 10/10/25 11:42 Blood Pressure 161/63 H 10/10/25 11:42 Pulse Oximetry 98 10/10/25 11:42 Reviewed MDM - URI/Sore Throat MDM Narrative Medical decision making narrative: 84-year-old female patient presents today complaining of a 3 day history of cough, 2 day history of wheezing with fever up to 102 days ago and none since then. She also reports some fatigue and nasal congestion. Reports wheezing is most prominent at night, and daughter states patient coughs through the night every night. Denies sore throat or shortness of breath. She has tried some hmuy-nfg-oewdebg cough medicine with some relief. Denies history of asthma or COPD. Upon exam, patient has a mild congestion but exam is otherwise normal. Normal physical exam. Due to patient's wheezing through the night and HPI, chest x-ray ordered. Chest x-ray negative. Prescription for prednisone sent to pharmacy to help with her cough and wheezing. Patient has taken prednisone before without difficulty. Patient declines prescription for inhaler or Tessalon Perles. Patient is unhappy that she will not be receiving antibiotics. Long discussion with her regarding negative chest x-ray and likelihood that her bronchitis is bacterial. Vital signs stable with mildly elevated blood pressure. Anticipatory guidance and ED precautions given. Differential Diagnosis Differential diagnosis: Likely upper respiratory infection, bronchitis and other (Pneumonia) Imaging Data Radiologist's impression: ITS Impressions Chest X-Ray 10/10/25 12:28 IMPRESSION: 1. Stable 2 view chest x-ray with no focal infiltrate. Critical Care Time Critical Care Time Critical Care Time: No Discharge Plan Discharge Clinical Impression: Bronchitis Patient Disposition: Home Condition: Stable Instructions: Acute Bronchitis (ED) Additional Instructions: Your chest x-ray is negative for pneumonia. Please take the prednisone as prescribed. Continue iscq-asq-jghfete cough medicine as needed. Follow-up with your PCP in 3 days if symptoms are not improving. Go to the ER immediately if symptoms worsen to include shortness of breath, chest pain. Patient Language: Sudanese Prescriptions: New prednisone 20 mg tablet 40 mg PO DAILY 5 Days Qty: 10 0RF No Action metoprolol succinate 50 mg tablet extended release 24 hr 50 mg PO DAILY Qty: 90 2RF lisinopril 30 mg tablet 30 mg PO DAILY Qty: 90 3RF amlodipine 10 mg tablet See Rx Instructions .ROUTE .COMPLEX Qty: 90 2RF Dose Instruction: TAKE 1 TABLET BY MOUTH DAILY Rx Instructions: TAKE 1 TABLET BY MOUTH DAILY codeine-guaifenesin 10-100 mg/5 mL liquid 5 ml PO Q4-6H PRN (Reason: cough) Qty: 237 0RF ergocalciferol (vitamin D2) 1,250 mcg (50,000 unit) capsule See Rx Instructions .ROUTE .COMPLEX Qty: 12 0RF Dose Instruction: Take 1 capsule by mouth once a week Rx Instructions: Take 1 capsule by mouth once a week lorazepam [Ativan] 1 mg tablet 1 mg PO BID PRN (Reason: RAMÓN) Qty: 60 0RF rosuvastatin 5 mg tablet 5 mg PO DAILY Qty: 90 3RF Follow-up/Referrals: Dylon Houser MD [Primary Care Provider, Family Practice] Time of Disposition: 13:01
== END 2025-10-10 13:06 | disposition home or self-care (01) ==
PROVIDERS: Emergency Provider Nurse Practitioner; PCP Family Medicine
DX: J40 Bronchitis, not specified as acute or chronic (principal); I10 Essential (primary) hypertension; E78.5 Hyperlipidemia, unspecified; E66.9 Obesity, unspecified; Z68.30 Body mass index [BMI] 30.0-30.9, adult; E55.9 Vitamin D deficiency, unspecified; F41.1 Generalized anxiety disorder; Z96.642 Presence of left artificial hip joint
CPT/HCPCS: 71046; 99213; G0463